=== PATIENT | female | born 1965 | race Caucasian/White ===

== ENCOUNTER 2016-10-09 05:03 | Day surgery (SDC) | payer BC ==
[2016-10-08 14:37] VITALS: BMI 21.6
[2016-10-09] MEDS ORDERED: BUPIVACAINE HCL/PF 0.5% (5MG/ML) 10 ML VIAL ONE (07:18)
[2016-10-09] MEDS ORDERED: ePHEDrine SULFATE 50 MG/1 ML AMPULE ONE (07:24)
[2016-10-09] MEDS ORDERED: PHENYLEPHRINE HCL 10 MG/1 ML SINGLE DOSE VIAL ONE (07:24)
[2016-10-09] MEDS ORDERED: PROPOFOL 20 ML ONE ×3 (07:25)
[2016-10-09] MEDS ORDERED: SUCCINYLCHOLINE CHLORIDE 200 MG/10 ML VIAL ONE (07:25)
[2016-10-09] MEDS ORDERED: MIDAZOLAM HCL 2 MG/2 ML SINGLE DOSE VIAL ONE ×2 (07:25)
[2016-10-09] MEDS ORDERED: ACETAMINOPHEN INJECTION 100 ML IVPB ONE (07:30)
[2016-10-09] MEDS ORDERED: DESFLURANE GAS 240 ML BOTTLE IH ONE (08:14)
--- NOTE | 2016-10-09 08:29 | HP ---
Satellite [facility] - Chief Complaint Chief Complaint: right knee pain - Past Medical History Allergies/Adverse Reactions: Allergies Allergy/AdvReac Type Severity Reaction Status Date / Time No Known Allergies Allergy Verified 02/01/16 16:51 ...LMP Comment: 2014 - Current Medications Current Medications: Home Medications Medication Instructions Recorded Levothyroxine [Synthroid -] 200 mcg PO DAILY 02/16/14 Alprazolam [Xanax Xr] 1 mg PO TID PRN 02/01/16 Oxycodone HCl 30 mg PO TID 02/01/16 Adderall Xr 20 mg Capsule 20 mg PO PRN PRN 10/08/16 Satellite Physical Exam - Physical Examination Vital Signs: Vital Signs Period Temp Pulse Resp BP Sys/[place] Pulse Ox Last 24 Hr 98 F 85 18 94/59 98 General Appearance: Well Nourished, Well Developed, Alert & Oriented x3 ENT: Clear Lung: Normal air movement Heart: Regular rate & rhythm Extremities: Other (right knee- + swelling, + ttp, decr rom, + mcmurrays, + apleys, nvi MRi + mmt, lmt) Neurological: Intact, Alert, Oriented Satellite Impression/Plan - Impression/Plan Impression: right knee internal derangement Operative Procedure: right knee arthroscopy Date to be Performed: 10/09/16
[2016-10-09] MEDS ORDERED: ONDANSETRON 4 MG/2 ML VIAL ONE (08:30)
--- NOTE | 2016-10-09 08:55 | OP ---
Operative Note - Note: Operative Date: 10/09/16 ([facility]) Pre-Operative Diagnosis: right knee internal derangement Operation: right knee arthroscopy with PLM Post-Operative Diagnosis: Same as Pre-op Surgeon: Braydon Villalta Corporate Travel Coordinator: Jesus Lord Anesthesiologist/WARDROBE CONSULTANT: Servando Mai Anesthesia: General, Local Specimens Removed: shavings Estimated Blood Loss (mls): 5 Operative Report Dictated: Yes
[2016-10-09] MEDS ORDERED: ONDANSETRON 4 MG/2 ML VIAL IVPUSH PRN (08:58)
[2016-10-09] MEDS ORDERED: LACTATED RINGERS SOLUTION 1,000 ML IV SCH (09:00)
[2016-10-09] MEDS ORDERED: oxyCODONE HCL 5 MG TABLET PO PRN (10:45)
[2016-10-09] MEDS ORDERED: oxyCODONE HCL 5 MG TABLET ONE (10:50)
--- NOTE | 2016-10-09 10:58 | OP ---
DATE OF OPERATION: 10/09/2016 PREOPERATIVE DIAGNOSIS: Right lateral meniscus tear. POSTOPERATIVE DIAGNOSIS: Right lateral meniscus tear. PROCEDURE: Arthroscopy right knee with partial lateral meniscectomy. SURGICAL ATTENDING: Braydon Villalta MD CHIEF DRAFTER: Jesus Lord MD ANESTHESIA: General with LMA. CLOSURES: 4-0 nylon. COMPLICATIONS: None. CONDITION: To recovery room in stable condition. DESCRIPTION OF PROCEDURE: The patient was taken to the operating room on October 09, 2016. General anesthesia with LMA was administered by the anesthesiologist. The right lower extremity was prepped and draped in the usual sterile fashion. Superolateral and mediolateral infrapatellar portal sites were infiltrated with 1% Xylocaine with epinephrine. Superolateral port was made with 15 blade and blunt trocar. The knee was aspirated and inflated with a cocktail of 10 mL of 1% Xylocaine, 10 mL of 0.5% Marcaine, and 20 mL of arthroscopic saline. The medial and lateral infrapatellar ports was then made with a 15 blade and blunt trocar. The scope was placed in the lateral infrapatellar port up to suprapatellar pouch. The pouch was visualized to be clean. The medial and lateral gutters were visualized to be clean. The undersurface of the patella and trochlea were visualized to be intact. With valgus stress on the knee, the medial compartment was entered. The medial meniscus was visualized and probed and found to intact. The medial femoral condyle was run and found to be intact as was the medial tibial plateau. At 90 degrees, the ACL was visualized and probed and found to be intact. In figure-4 position, lateral compartment was entered. Lateral meniscus was found to have a complex tear of its midportion. This was debrided back to normal, stable, meniscal tissue using a meniscal biter and arthroscopic shaver. The lateral and femoral condyle was inspected thoroughly as was the lateral tibial plateau and found to be intact. The knee was irrigated with copious amounts of irrigation. The port was closed using 4-0 nylon. Prior to closure, 20 mL of 0.5% Marcaine was infused into the knee for postoperative analgesia. A sterile pressure dressing was placed over the knee. The patient was awakened from anesthesia and transferred to recovery in stable condition with no complications. Estimated blood loss negligible. Crystal [id number]
[2016-10-09 11:55] VITALS: BP 100/58; PULSE 72; TEMP 98.1
--- NOTE | 2016-10-10 16:30 | PATH ---
Surgical Pathology Report Patient Name: CLEM HILTON [facility]. Rec. #: [id number] /Age/Gender: 1965 (Age: 51) / F Account: [id number] Location: [facility] SURGICAL Taken: 10/09/2016 Received: 10/09/2016 Reported: 10/10/2016 Physicians: Crystal Hood M.D. Specimen(s) Received RIGHT KNEE SHAVINGS Clinical History Right knee tear Final Diagnosis SOFT TISSUE, RIGHT KNEE, ARTHROSCOPIC SHAVINGS: SYNOVIUM AND FIBROCARTILAGE WITH MYXOHYALINE DEGENERATION. Electronically Signed Jamir Moon M.D. Gross Description Received in formalin, labeled "right knee shavings" is a 2.5 x 2.5 x 0.3 cm aggregate of marie-yellow soft tissue fragments. A food products sales representative portion is submitted in one cassette. 10/09/201610/09/2016
== END 2016-10-09 12:20 | disposition home or self-care (01) ==
LOC: JASU-SURG 05:03
PROVIDERS: ATTEND Orthopaedic Surgery
PROC: 0SBC4ZZ Excision of Right Knee Joint, Percutaneous Endoscopic Approach (ICD-10-PCS; principal; 2016-10-09 08:00)
DX: S83.281A Other tear of lateral meniscus, current injury, right knee, initial encounter (principal); X58.XXXA Exposure to other specified factors, initial encounter; Y93.9 Activity, unspecified; Y92.9 Unspecified place or not applicable; Y99.9 Unspecified external cause status
CPT/HCPCS: 88304-TC; 94760; 97116-GP

== ENCOUNTER 2016-10-28 05:51 | Emergency (ER) | payer BC ==
--- NOTE | 2016-10-28 05:53 | PDOC ---
History of Present Illness - General Chief Complaint: Pain, Acute Stated Complaint: PAIN IN RIGHT HAND X 1 YEAR , INCREASED OVER LAST Time Seen by Provider: 10/28/16 05:52 - History of Present Illness Initial Comments: 10/28/16 06:19 This 51-year-old woman with multiple orthopedic issues, including right carpal tunnel syndrome pain presents with progressive pain in the right wrist/hand area for the last few days. Patient states that she has been seen for this pain by Dr. Villalta several times in the past, during which she received a steroid injection into the area. This was temporarily effective but she has not seen Dr. Villalta for a while. She describes burning, "electrical" type of pain extending through the forearm into the base of her hand and fingers especially with certain positions of her hand. She has also had progressive weakness in the hand. She has had splints for use, especially at night for the last year. There has been no recent trauma or overuse of the right hand/wrist area. There is no acute edema/erythema of any of the joints in her hand or wrist. Past History - Past Medical History Allergies/Adverse Reactions: Allergies Allergy/AdvReac Type Severity Reaction Status Date / Time No Known Allergies Allergy Verified 10/28/16 05:52 Home Medications: Ambulatory Orders Levothyroxine [Synthroid -] 200 mcg PO DAILY 02/16/14 Alprazolam [Xanax Xr] 1 mg PO TID PRN 02/01/16 Oxycodone HCl 30 mg PO TID 02/01/16 Adderall Xr 20 mg Capsule 20 mg PO PRN PRN 10/08/16 Prednisone [Deltasone -] 20 mg PO DAILY #10 tablet 10/28/16 Anemia: No Asthma: Yes (SEASONAL ASTHMA) Cancer: No Cardiac Disorders: No CVA: No COPD: No CHF: No Dementia: No Diabetes: No GI Disorders: No Disorders: No HTN: No Hypercholesterolemia: No Liver Disease: No Psychiatric Problems: Yes (ANXIETY.) Seizures: No Thyroid Disease: Yes (HYPO) - Surgical History Abdominal Surgery: Yes (CYST AND OVARY, ABLATION) Appendectomy: No Cardiac Surgery: No Lung Surgery: No Neurologic Surgery: No Orthopedic Surgery: Yes (MUSCLE, CARTLIDGE RIGHT RARM') - Psycho/Social/Smoking Cessation Hx Anxiety: Yes Suicidal Ideation: No Smoking History: Current every day smoker Have you smoked in the past 12 months: Yes Number of Cigarettes Smoked Daily: 20 'Breaking Loose' booklet given: 10/08/16 Hx Alcohol Use: No Drug/Substance Use Hx: No Substance Use Type: None Hx Substance Use Treatment: No Review of Systems - Review of Systems Able to Perform ROS?: Yes Comments:: 12 point review of systems is negative except for what is noted in the history of present illness *Physical Exam - Physical Exam Comments: GENERAL: Adult female, alert and oriented 3, in mild distress secondary to right hand pain EXTREMITIES: Right upper extremity flattening of the thenar eminence with pain on palpation over the carpal tunnel/base of the thenar eminence No acute inflammation/edema or erythema of any of the joints of her hand ; enlargement of IP joints NEUROLOGICAL: Cranial nerves II through XII grossly intact. Normal speech. No focal neurological deficits. MUSCULOSKELETAL: Back non-tender to palpation, no CVA tenderness SKIN: Warm, Dry, normal turgor, no rashes or lesions noted. Progress Note - Progress Note Progress Note: This 51-year-old woman with a history of carpal tunnel syndrome of the right upper extremity, presents with several day flare of her neurogenic pain. The patient states that in the past she has had no significant relief of her pain with Neurontin or other medications design foreign neurogenic pain. She has used splints in the past and has them at home. She has had intra-articular steroid injections by Dr. Villalta. However, she has not had a steroid injection in a while. She cannot recall actually taking oral prednisone course for her flare episodes. Patient states that she does not have significant gastritis/or history of peptic ulcer disease. She occasionally has GERD and needs to takes Zantac or some similar H2-garland when she takes prednisone. Patient will be given prednisone 20 mg now and ten-day course of 20 mg daily will be given to her. Patient has been advised to contact Dr. Villalta's office to arrange follow-up within the next week. Meanwhile, she should return to the emergency room if she has any severe, persistent pain in the area of her right wrist/hand *DC/Admit/Observation/Transfer Diagnosis at time of Disposition: Carpal tunnel syndrome Qualifiers: Laterality: right Qualified Code(s): G56.01 - Carpal tunnel syndrome, right upper limb - Discharge Dispostion Disposition: HOME Condition at time of disposition: Stable - Prescriptions Prescriptions: Prednisone [Deltasone -] 20 mg PO DAILY #10 tablet - Referrals Referrals: Jesus Lord MD [Primary Care Provider] - Braydon Villalta MD [Staff Physician] - - Patient Instructions Printed Discharge Instructions: Carpal Tunnel Syndrome Additional Instructions: Use carpal tunnel splint on right wrist, especially at night Prednisone 20 mg daily for 10 days Take prednisone with meal Call Dr. Villalta's office today to make an appointment within the next week Return to ER if you have severe, persistent pain
[2016-10-28 06:02] VITALS: BP 118/70; PULSE 92; TEMP 98.2; BMI 21.6
[2016-10-28] MEDS ORDERED: predniSONE 20 MG TABLET (UD) ONE (06:11)
[2016-10-28] MEDS ORDERED: predniSONE 20 MG TABLET (UD) PO ONE (06:11)
== END 2016-10-28 06:33 | disposition home or self-care (01) ==
LOC: FER 05:51
DX: G56.01 Carpal tunnel syndrome, right upper limb (principal); J45.998 Other asthma; F41.9 Anxiety disorder, unspecified; E03.9 Hypothyroidism, unspecified; F17.210 Nicotine dependence, cigarettes, uncomplicated
CPT/HCPCS: 99281-25

== ENCOUNTER 2017-09-16 12:52 | Day surgery (SDC) | payer BC ==
[2017-09-15 10:54] VITALS: BMI 20.5
--- NOTE | 2017-09-16 10:11 | HP ---
Satellite [facility] - Chief Complaint Chief Complaint: left knee pain - Past Medical History Allergies/Adverse Reactions: Allergies Allergy/AdvReac Type Severity Reaction Status Date / Time No Known Allergies Allergy Verified 09/15/17 10:54 ...LMP: 11/23/11 - Current Medications Current Medications: Home Medications Medication Instructions Recorded Levothyroxine [Synthroid -] 200 mcg PO DAILY 02/16/14 Alprazolam [Xanax Xr] 1 mg PO TID PRN 02/01/16 Oxycodone HCl 30 mg PO BID 02/01/16 Adderall Xr 20 mg Capsule 20 mg PO PRN PRN 10/08/16 Hydrocodone/Acetaminophen [[place] 1 each PO Q6H PRN #40 tablet MDD 4 09/16/17 5-325 Tablet] Satellite Physical Exam - Physical Examination General Appearance: Well Nourished, Well Developed, Alert & Oriented x3 ENT: Clear Lung: Normal air movement Heart: Regular rate & rhythm Extremities: Other (left knee- + swelling, + ttp medially, dec rom, nvi MRI + mmt) Neurological: Intact, Alert, Oriented Satellite Impression/Plan - Impression/Plan Impression: left knee internal derangement Operative Procedure: left knee arthroscopy Date to be Performed: 09/16/17
[2017-09-16] MEDS ORDERED: BUPIVACAINE HCL/PF 0.5% (5MG/ML) 10 ML VIAL ONE (14:19)
[2017-09-16] MEDS ORDERED: MIDAZOLAM HCL 2 MG/2 ML SINGLE DOSE VIAL ONE ×2 (14:33→15:02)
[2017-09-16] MEDS ORDERED: DEXAMETHASONE SOD PHOSPHATE 4 MG/1 ML VIAL ONE (15:08)
[2017-09-16] MEDS ORDERED: PROPOFOL 20 ML ONE (15:09)
[2017-09-16] MEDS ORDERED: LIDOCAINE HCL/PF 2% SDV 5ML VIAL ONE (15:09)
[2017-09-16] MEDS ORDERED: ceFAZolin SODIUM 1 GM VIAL ONE (15:09)
[2017-09-16] MEDS ORDERED: ceFAZolin SODIUM 1 GM VIAL IVPB ONE (15:16)
[2017-09-16] MEDS ORDERED: BUPIVACAINE HCL/PF (5 MG/ML) 30 ML VIAL IJ ONE (15:32)
[2017-09-16] MEDS ORDERED: KETOROLAC TROMETHAMINE 30 MG/1 ML VIAL ONE (15:47)
--- NOTE | 2017-09-16 15:49 | OP ---
Operative Note - Note: Operative Date: 09/16/17 ([facility]) Pre-Operative Diagnosis: left knee internal derangement Operation: left knee arthroscopy with PMM, PLM Post-Operative Diagnosis: Same as Pre-op Surgeon: Braydon Villalta Anesthesiologist/COTTON AGENT: Phong Prado Anesthesia: General, Local Specimens Removed: shavings Estimated Blood Loss (mls): 5 Operative Report Dictated: Yes
[2017-09-16] MEDS ORDERED: oxyCODONE HCL 5 MG TABLET PO PRN (16:02)
[2017-09-16] MEDS ORDERED: ONDANSETRON 4 MG/2 ML VIAL IVPUSH PRN (16:02)
[2017-09-16] MEDS ORDERED: MEPERIDINE HCL CARPU-JECT 25 MG/1 ML DISP.SYRIN ONE (16:10)
[2017-09-16] MEDS ORDERED: LACTATED RINGERS SOLUTION 1,000 ML IV SCH (16:15)
[2017-09-16] MEDS ORDERED: MEPERIDINE HCL CARPU-JECT 25 MG/1 ML DISP.SYRIN IVPUSH ONE (16:16)
--- NOTE | 2017-09-16 16:35 | OP ---
DATE OF OPERATION: 09/16/2017 PREOPERATIVE DIAGNOSIS: Left knee pain. POSTOPERATIVE DIAGNOSIS: Left knee medial and lateral meniscus tear. PROCEDURE: Left knee arthroscopy, partial medial and lateral meniscectomy. SURGEON: Nguyễn Thomas MD ASSISTANTS: None. ANESTHESIOLOGIST: Phong Prado MD ANESTHESIA: LMA anesthesia with intraarticular injection of 20 mL of 0.50% Marcaine. DRAINS: None. COMPLICATIONS: None. SPECIMENS: Arthroscopic shavings. BLOOD LOSS: None. BLOOD GIVEN: None. FLUID REPLACEMENT: 500 mL This patient is a 52-year-old female with the preoperative diagnosis of left knee pain. After understanding the potential risks, complications, alternatives, and benefits of surgery versus nonsurgical treatment, the patient elected to undergo this procedure. Patient was brought to the operating room, peripheral IV placed, IV sedation given. One gram of IV Ancef was given. LMA anesthesia was induced. Ample Webril was placed around the left thigh. A tourniquet was applied. A Styrofoam ring was applied. Left lower extremity was placed in C-clamp leg brar with ample padding throughout, prepped and draped in sterile fashion, elevated, exsanguinated with an Esmarch bandage, and the tourniquet inflated to 250 mmHg. Superomedial outflow portal was established with a number 15 scalpel blade, and a lateral portal was established. Diagnostic arthroscopy was performed under direct visualization using a spinal needle. A medial portal was established. The medial compartment showed that there was a tear of the posterior horn of the medial meniscus. Photographs were taken. The tear was debrided with a curved shaver. I gently debrided the torn portions of the medial meniscus until a stable edge was released. Photographs were taken before and after. The medial femoral condyle and medial tibial plateau looked good. There was no osteoarthritis. The intercondylar notch looked good. The ACL looked good. In the lateral compartment, the patient was seen to have a small tear of the body of the lateral meniscus. This was debrided with a curved shaver. Photographs were taken before and after. The lateral femoral condyle and lateral tibial plateau also looked good. In the patellofemoral joint, the cartilage looked good. I put it through a full range of motion under direct visualization. The tracking was good. There was, however, synovitis and excessive fat pad. This was debrided with a curved shaver. Once this was done, final photographs were taken. I looked around. There were no other abnormalities. Overall, the knee looked quite good. All excess saline and debris were removed. The arthroscopy portals were closed with 4-0 nylon sutures. The area was then washed and dried. Next, 20 mL of 0.50% Marcaine was introduced into the joint. It was then covered with Xeroform, 4 x 4's, Webril, and a 6-inch Parvez bandage. Tourniquet was taken down after total tourniquet time of 17 minutes. There were no complications during the case. The patient tolerated the procedure quite well and was brought to the ambulatory recovery room in stable condition. NGUYỄN THOMSA M.D. [id number]
[2017-09-16 18:06] VITALS: BP 119/66; PULSE 70
[2017-09-16 18:55] VITALS: TEMP 98.2
--- NOTE | 2017-09-18 17:26 | PATH ---
Surgical Pathology Report Patient Name: CLEM HILTON [facility]. Rec. #: [id number] /Age/Gender: 1965 (Age: 52) / F Account: [id number] Location: [facility] SURGICAL Taken: 09/16/2017 Received: 09/17/2017 Reported: 09/18/2017 Physicians: Braydon Villalta M.D. Specimen(s) Received LEFT KNEE SHAVINGS Clinical History Left knee pain Final Diagnosis KNEE SHAVINGS, LEFT, ARTHROSCOPY: FRAGMENTS OF CARTILAGE, DENSE FIBROCONNECTIVE TISSUE, ADIPOSE TISSUE, AND REACTIVE SYNOVIUM. Electronically Signed Amy Davis M.D. Gross Description Received in formalin, labeled "left knee shavings," is a 4.3 x 3.2 x 0.4 cm. aggregate of marie-yellow soft tissue fragments. A dental sales representative portion is submitted in one cassette. /09/17/2017 saudi/09/17/2017
== END 2017-09-16 19:05 | disposition home or self-care (01) ==
LOC: JASU-SURG 12:52
PROVIDERS: ATTEND Orthopaedic Surgery
PROC: 0SBD4ZZ Excision of Left Knee Joint, Percutaneous Endoscopic Approach (ICD-10-PCS; 2017-09-16)
PROC: 0SBD4ZZ Excision of Left Knee Joint, Percutaneous Endoscopic Approach (ICD-10-PCS; principal; 2017-09-16 14:30)
DX: S83.282A Other tear of lateral meniscus, current injury, left knee, initial encounter (principal); S83.242A Other tear of medial meniscus, current injury, left knee, initial encounter; X58.XXXA Exposure to other specified factors, initial encounter; Y93.9 Activity, unspecified; Y92.89 Other specified places as the place of occurrence of the external cause; Y99.9 Unspecified external cause status
CPT/HCPCS: 88304-TC; 94760; 97116-GP

== ENCOUNTER 2018-01-26 19:39 | Emergency (ER) | payer BC ==
[2018-01-26 19:53] VITALS: BP 119/78; PULSE 86; TEMP 98.3; BMI 22.4
--- NOTE | 2018-01-26 19:56 | PDOC ---
History of Present Illness - General History Source: Patient Exam Limitations: No Limitations - History of Present Illness Initial Comments: 01/26/18 20:51 The patient is a 52 year old female, with a significant past medical history of hypothyroidism, anxiety, and carpal tunnel, who presents to the emergency department with, right hand and 4th digit pain. As per patient, her pain began to worsen 2 days ago while peeling potatoes and her 4th digit locked. She notes that this pain has been ongoing for over a month. She sees Dr. Villalta for her carpal tunnel where she gets cortisone shots, her last visit was months ago. She denies any change in sensation to the hand. She denies recent fevers, chills , headache or dizziness. She denies recent nausea, vomit, diarrhea or constipation. She denies recent dysuria, frequency, urgency or hematuria. She denies recent chest pain or shortness of breath. Allergies: NKDA Past surgical history: Right elbow and shoulder surgery Social history: Smoker. Primary Care Physician: Dr. Pina <Aleah Mendoza - Last Filed: 01/26/18 20:51> <Lauren Granda - Last Filed: 01/27/18 05:39> - General Chief Complaint: Pain Stated Complaint: RIGHT HAND/FINGER PAIN Time Seen by Provider: 01/26/18 19:41 Past History <Aleah Mendoza - Last Filed: 01/26/18 20:51> - Past Medical History Anemia: No Asthma: Yes (SEASONAL ASTHMA) Cancer: No Cardiac Disorders: No CVA: No COPD: No CHF: No Dementia: No Diabetes: No GI Disorders: No Disorders: No HTN: No Hypercholesterolemia: No Liver Disease: No Psychiatric Problems: Yes (ANXIETY) Seizures: No Thyroid Disease: Yes (HYPO) - Surgical History Abdominal Surgery: Yes (CYST AND OVARY, ABLATION) Appendectomy: No Cardiac Surgery: No Lung Surgery: No Neurologic Surgery: No Orthopedic Surgery: Yes (MUSCLE, CARTLIDGE RIGHT RARM') - Suicide/Smoking/Psychosocial Hx Smoking History: Current every day smoker Have you smoked in the past 12 months: Yes Number of Cigarettes Smoked Daily: 20 Information on smoking cessation initiated: Yes 'Breaking Loose' booklet given: 09/16/17 Hx Alcohol Use: No Drug/Substance Use Hx: No Substance Use Type: None Hx Substance Use Treatment: No <Lauren Granda June - Last Filed: 01/27/18 05:39> - Past Medical History Allergies/Adverse Reactions: Allergies Allergy/AdvReac Type Severity Reaction Status Date / Time No Known Allergies Allergy Verified 01/26/18 19:40 Home Medications: Ambulatory Orders Levothyroxine [Synthroid -] 200 mcg PO DAILY 02/16/14 Alprazolam [Xanax Xr] 1 mg PO TID PRN 02/01/16 Oxycodone HCl 30 mg PO BID 02/01/16 Dextroamphetamine/Amphetamine [Adderall Xr 30 mg Capsule] 30 mg PO DAILY PRN Prednisone [Deltasone] 20 mg PO DAILY #4 tablet 01/26/18 Review of Systems - Review of Systems Able to Perform ROS?: Yes Comments:: 01/26/18 20:51 CONSTITUTIONAL: Absent: fever, no chills, no fatigue EYES: Absent: visual changes ENT: Absent: ear pain, no sore throat CARDIOVASCULAR: Absent: chest pain, no palpitations RESPIRATORY: Absent: cough, no SOB GI: Absent: abdominal pain, no nausea, no vomiting, no constipation, no diarrhea GENITOURINARY: Absent: dysuria, no frequency, no hematuria MUSKULOSKELETAL: Present: Right 4th digit and hand pain. Absent: back pain SKIN: Absent: rash NEURO: Absent: headache All Other Systems: Reviewed and Negative <Aleah Mendoza - Last Filed: 01/26/18 20:51> *Physical Exam - Vital Signs Last Vital Signs Temp Pulse Resp BP Pulse Ox 98.3 F 86 16 119/78 97 01/26/18 19:40 01/26/18 19:40 01/26/18 19:40 01/26/18 19:40 01/26/18 19:40 - Physical Exam Comments: 01/26/18 20:52 GENERAL: The patient is awake, alert, and fully oriented, in no acute distress. HEAD:[Normal with no signs of trauma. EYES: Pupils equal, round and reactive to light, extraocular movements intact, sclera anicteric, conjunctiva clear. +EXTREMITIES: Right hand: Generalized moderate edema to the 4th digit with tenderness on passive and active motion. Mild tenderness to the palmar aspect of the hand throughout. Radial pulses palpable at wrist. Good capillary refills. NEUROLOGICAL: Normal speech, normal gait. PSYCH: Normal mood, normal affect. SKIN: Warm, Dry, normal turgor, no rashes or lesions noted. <Aleah Mendoza - Last Filed: 01/26/18 20:51> - Vital Signs Last Vital Signs Temp Pulse Resp BP Pulse Ox 98.3 F 86 16 119/78 97 01/26/18 19:40 01/26/18 19:40 01/26/18 19:40 01/26/18 19:40 01/26/18 19:40 <Lauern Granda - Last Filed: 01/27/18 05:39> Medical Decision Making - Medical Decision Making Documentation has been prepared under my direction and personally reviewed by me in its entirety. I attest that this documented accurately reflects all work, treatment, procedures and medical decision making performed by me. As noted above, this 52-year-old woman with history of carpal tunnel syndrome on the right side, with multiple intra-articular injections of steroids by Dr. Villalta for acute episodes of this anomaly, presents with worsening discomfort and swelling of the right ring finger. Although somewhat reminiscent of her acute pain secondary to carpal tunnel syndrome, she also describes freezing of the finger when in full flexion which suggests trigger finger. Exam as noted. Because of patient was unclear whether she had any previous severe trauma to the area, right hand x-ray performed: No evidence of acute fracture/dislocation. Because oral prednisone course was helpful for her carpal tunnel syndrome flareups, patient was eager to begin a short course of this prior to seeing her orthopedic hand surgeon, Dr. Villalta. Patient started on 20 mg prednisone today with prescription for 4 more days of this dose sent to the pharmacy. She should return to the emergency room if she has severe, persistent pain/swelling in finger. <Lauren Granda - Last Filed: 01/27/18 05:39> *DC/Admit/Observation/Transfer - Attestations Scribe Attestion: 01/26/18 20:52 Documentation prepared by Aleah Mendoza, acting as biomedical engineering technologist for Lauren Granda MD. <Aleah Mendoza - Last Filed: 01/26/18 20:51> <Lauren Granda - Last Filed: 01/27/18 05:39> Diagnosis at time of Disposition: Finger pain, right - Discharge Dispostion Disposition: HOME Condition at time of disposition: Stable - Prescriptions Prescriptions: Prednisone [Deltasone] 20 mg PO DAILY #4 tablet - Referrals Referrals: Dell Pina MD [Primary Care Provider] - Braydon Villalta MD [Staff Physician] - Call tomorrow - Patient Instructions Printed Discharge Instructions: DI for Trigger Finger Additional Instructions: Call Dr. Villalta office in a.m. to arrange follow-up Prednisone 20 mg daily for the next 4 days; take with food Return to ER if you have severe, persistent pain - Post Discharge Activity
[2018-01-26] MEDS ORDERED: predniSONE 20 MG TABLET (UD) PO ONE (21:27)
[2018-01-26] MEDS ORDERED: predniSONE 20 MG TABLET (UD) ONE (21:28)
== END 2018-01-26 21:36 | disposition home or self-care (01) ==
LOC: FER 19:39
DX: M79.644 Pain in right finger(s) (principal); E03.9 Hypothyroidism, unspecified; F41.9 Anxiety disorder, unspecified; F17.210 Nicotine dependence, cigarettes, uncomplicated
CPT/HCPCS: 73130-TC-RT-FY; 99282-25

== ENCOUNTER 2018-10-09 08:02 | Day surgery (SDC) | payer BC ==
[2018-10-08 10:10] VITALS: BMI 22.4
[2018-10-09] MEDS ORDERED: DEXAMETHASONE SOD PHOSPHATE 4 MG/1 ML VIAL ONE ×2 (08:12→10:27)
[2018-10-09] MEDS ORDERED: LIDOCAINE HCL 1%, 10 MG/ML (20ML VIAL) ONE (08:12)
[2018-10-09] MEDS ORDERED: BUPIVACAINE HCL/PF 0.5% (5MG/ML) 10 ML VIAL ONE (08:12)
[2018-10-09] MEDS ORDERED: ceFAZolin SODIUM 1 GM VIAL ONE ×2 (09:38→10:26)
[2018-10-09] MEDS ORDERED: PROPOFOL 20 ML ONE (09:39)
[2018-10-09] MEDS ORDERED: MIDAZOLAM HCL 2 MG/2 ML SINGLE DOSE VIAL ONE ×2 (09:39→10:06)
[2018-10-09] MEDS ORDERED: ceFAZolin SODIUM 1 GM VIAL IVPB ONE ×2 (09:44→10:28)
[2018-10-09] MEDS ORDERED: LIDOCAINE HCL 1%, 10 MG/ML (20ML VIAL) NR ONE (09:46)
[2018-10-09] MEDS ORDERED: BUPIVACAINE HCL/PF 0.5% (5MG/ML) 10 ML VIAL NR ONE (09:46)
[2018-10-09] MEDS ORDERED: DEXAMETHASONE SOD PHOSPHATE 4 MG/1 ML VIAL NR ONE (10:51)
[2018-10-09] MEDS ORDERED: BUPIVACAINE HCL/PF 0.5% (5MG/ML) 10 ML VIAL IJ ONE (10:51)
--- NOTE | 2018-10-09 11:13 | OP ---
Operative Note - Note: Operative Date: 10/09/18 Pre-Operative Diagnosis: Hallux Valgus right Operation: Long arm Steven Bunionectomy with 2 osteomed partially threaded screws. Findings: Hypertrophic bone Implants: 2.4x14 osteomed lag (partially threaded)screw, 2.4x16 osteomed lag( partially threaded) screw Post-Operative Diagnosis: Same as Pre-op Surgeon: Francisco Espinosa Global Supply Chain Director: Kelsi Michelle Anesthesia: Local, MAC Specimens Removed: bone soft tissue Estimated Blood Loss (mls): 5 Operative Report Dictated: No
[2018-10-09 18:18] VITALS: BP 130/70; PULSE 68; TEMP 97.8
--- NOTE | 2018-10-14 17:11 | PATH ---
Surgical Pathology Report Patient Name: CLEM HILTON [facility]. Rec. #: [id number] /Age/Gender: 1965 (Age: 53) / F Account: [id number] Location: [facility] SURGICAL Taken: 10/09/2018 Received: 10/12/2018 Reported: 10/14/2018 Physicians: Kelsi Michelle DPM Francisco YING Espinosa Specimen(s) Received BONE RIGHT FOOT Clinical History Hallux valgus right foot Final Diagnosis RIGHT FOOT BONE, EXCISION: FRAGMENTS OF BONE WITH DEGENERATIVE CHANGE. Electronically Signed Elio Mars M.D. Gross Description Received in formalin labeled "bone right foot," is a 3.0 x 2.5 x 0.4 cm aggregate of abundant marie-yellow portions of bone and soft tissue. Classroom Technology Technician sections are submitted in one cassette, following decalcification. /10/12/2018 saudi10/12/2018
--- NOTE | 2018-10-15 13:37 | OP ---
DATE OF OPERATION: DATE OF DICTATION: 10/15/2018 Under mild sedation, the patient was brought in to the operating room and assisted onto the operating room table in a supine position. A pneumatic ankle tourniquet was then placed upon the patient's right ankle. Following IV sedation, local anesthetic block was administered to the right foot, approximately a 1:1 mixture of lidocaine and Marcaine. The foot was then scrubbed, prepped, and draped in the usual aseptic manner. An Esmarch bandage was then utilized to exsanguinate the patient's right foot and the pneumatic ankle tourniquet was inflated to 250 mmHg. Attention was then directed to the dorsomedial aspect of the 1st metatarsal head, right foot, where a linear longitudinal incision was carried out just medial and parallel to the tendon of the extensor hallucis longus and involving the deformity. The incision was then deepened through the subcutaneous tissues using sharp and blunt dissection. Care was taken to identify and retract all vital neural and vascular structures. All bleeders were ligated and cauterized as necessary. At this time, a capsulotomy was performed of the 1st MPJ. The periosteal and capsular structures were then carefully reflected, gaining entrance. Then the medial eminence was then resected with an oscillating saw and then passed from the operative site. Attention was then directed to the medial aspect of the 1st metatarsal head. The oscillating sagittal saw was then performed to remove the medial eminence. The oscillating saw was used to successfully perform a complete [id number] V-type Steven osteotomy and the angle of the V approximately 60 degrees. At this time, a K wire was driven from proximal dorsal to plantar medial distal, crossing the osteotomy site and will serve as a guide for the insertion of the screw. Following the rules and principles of AO fixation, 2 Osteomed screws were inserted in the metatarsal head. Excellent compression was noted as evidenced by the expelling of liquid marrow at the osteotomy site. The distal end of the screw was verified for certain as to not crowd the cartilage and the K wire was then removed. The remaining medial shaft was then transected and passed from the operative field. A power rasp smoothed any rough edges. Copious lavage was completed with irrigation with normal saline across all areas of operative site. A rolled up 4 x 4 was then placed between the 1st and 2nd toes to assist in the correction and then the capsular tissues were then reapproximated and coapted with absorbable 2-0 Vicryl sutures and 3-0 Vicryl sutures. The skin was closed with nonabsorbable 4-0 Vicryl sutures and 5-0 Vicryl sutures. Deflation of the tourniquet, prompt hyperemia noted across all digits of the right foot. Local injectate consisted of 8 mL of Marcaine plain and 2 mL of cortisone. The surgical wound and foot were dressed as follows: 4 x 4 gauze, Kerlix, and an Parvez bandage. The patient tolerated the procedure and anesthesia well, left the operating room with the anesthesiologist in stable condition. Following a period of postoperative monitoring, the patient will be discharged home for post-anesthesia recovery with instructions to elevate foot above the heart, pain medications p.r.n., keep dressing clean and dry, with followup appointment with Dr. Espinosa or Dr. Michelle. YING Barboza/[id number]
== END 2018-10-09 14:15 | disposition home or self-care (01) ==
LOC: JASU-SURG 08:02
PROVIDERS: ATTEND Podiatrist
PROC: 0QBN0ZZ Excision of Right Metatarsal, Open Approach (ICD-10-PCS; 2018-10-09)
PROC: 0QSN04Z Reposition Right Metatarsal with Internal Fixation Device, Open Approach (ICD-10-PCS; principal; 2018-10-09 09:00)
DX: M20.11 Hallux valgus (acquired), right foot (principal); M21.611 Bunion of right foot
CPT/HCPCS: 73630-TC-RT-FY; 88304-TC; 88311-TC

== ENCOUNTER 2019-05-16 08:02 | Emergency (ER) | payer SELFPAY ==
[2019-05-16] MEDS ORDERED: ALBUTEROL SO4 2.5/IPRATROPIUM 0.5 INH SOL 3 ML VIAL.NEB. NEB STA (08:07)
[2019-05-16] MEDS ORDERED: methylPREDNISolone NA SUCC 125 MG/2 ML VIAL IVPB ONE (08:10)
[2019-05-16] MEDS ORDERED: ALBUTEROL SO4 2.5/IPRATROPIUM 0.5 INH SOL 3 ML VIAL.NEB. NEB ONE (08:27)
--- NOTE | 2019-05-16 08:27 | PDOC ---
History of Present Illness - General Chief Complaint: Shortness of Breath Stated Complaint: SOB Time Seen by Provider: 05/16/19 08:07 History Source: Patient Exam Limitations: No Limitations - History of Present Illness Initial Comments: 05/16/19 08:21 CHIEF COMPLAINT: Shortness of breath and wheezing since last night HISTORY OF PRESENT ILLNESS: 54-year-old female with a long history of smoking, and hypothyroid. Patient uses albuterol inhaler and nebulizer as needed for epi sodic shortness of breath. She usually gets short of breath every few days. 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 She had some shortness of breath Friday night, but the symptoms were relatively mild. Last night, she had run out of medication, and she got very short of breath with wheezing that led to increasing anxiety. Patient denies sore throat, nasal congestion, cough, or fever. She continues to smoke 20 cigarettes/day. She started smoking at age 13 and has been smoking for over 40 years. She does not carry a diagnosis of COPD, however, she describes symptoms that are very suggestive of a diagnosis of COPD on an ongoing basis. Primary care physician: Dr. Pina Patient is also under regular psychiatric care for anxiety disorder. She takes Xanax as needed. REVIEW OF SYSTEMS: GENERAL/CONSTITUTIONAL: No fever or chills. No weakness. No weight change. HEAD, EYES, EARS, NOSE AND THROAT: No change in vision. No ear pain or discharge. No sore throat. CARDIOVASCULAR: No chest pain. Positive shortness of breath, see HPI. RESPIRATORY: No cough. No sputum production. No hemoptysis. Positive intermittent wheezing, worse last night. See HPI. GASTROINTESTINAL: No nausea, vomiting, diarrhea or constipation. No rectal bleeding. GENITOURINARY: No dysuria, frequency, or change in urination. MUSCULOSKELETAL: No joint or muscle swelling or pain. No neck or back pain. No calf pain. No history of DVT. SKIN AND BREASTS: No rash or easy bruising. NEUROLOGIC: Positive headache. History of migraines chronically. Usually gets better with Excedrin Migraine. No vertigo. Positive lightheadedness when very short of breath at home. Now feeling better after receiving 1 albuterol treatment in the ED. PSYCHIATRIC: No depression or anxiety. ENDOCRINE: No increased thirst. No abnormal weight change. Positive history of hypothyroidism on Synthroid. HEMATOLOGIC/LYMPHATIC: No anemia, easy bleeding, or history of blood clots. ALLERGIC/IMMUNOLOGIC: No hives or skin allergy. No latex allergy. Past History - Past Medical History Allergies/Adverse Reactions: Allergies Allergy/AdvReac Type Severity Reaction Status Date / Time No Known Allergies Allergy Verified 05/16/19 09:21 Home Medications: Ambulatory Orders Levothyroxine [Synthroid -] 200 mcg PO DAILY 02/16/14 Alprazolam [Xanax Xr] 1 mg PO TID PRN 02/01/16 Oxycodone HCl 30 mg PO BID 02/01/16 Dextroamphetamine/Amphetamine [Adderall Xr 30 mg Capsule] 30 mg PO DAILY PRN 01/26/18 Albuterol 0.083% Nebulizer Neelam [Ventolin 0.083% Nebulizer Soln -] 1 neb NEB Q4H PRN #25 vial 05/16/19 Albuterol Sulfate [Albuterol Sulfate Hfa] 2 inh IH Q4H PRN #1 hfa.aer.ad 05/16/19 Tiotropium [place] [Spiriva Respimat] 2 inh IH DAILY #1 mist.inhal 05/16/19 predniSONE [Deltasone -] 40 mg PO DAILY 4 Days #8 tablet 05/16/19 Anemia: No Asthma: Yes (SEASONAL ASTHMA) Cancer: No Cardiac Disorders: No CVA: No COPD: No CHF: No Dementia: No Diabetes: No GI Disorders: No Disorders: No HTN: No Hypercholesterolemia: No Liver Disease: No Psychiatric Problems: Yes (ANXIETY) Seizures: No Thyroid Disease: Yes (HYPO) Other medical history: Chronic back and neck pain, takes oxycodone as needed - Surgical History Abdominal Surgery: Yes (CYST AND OVARY, ABLATION) Appendectomy: No Cardiac Surgery: No Lung Surgery: No Neurologic Surgery: No Orthopedic Surgery: Yes (MUSCLE, CARTLIDGE RIGHT RARM') - Psycho Social/Smoking Cessation Hx Smoking History: Current every day smoker Have you smoked in the past 12 months: Yes Number of Cigarettes Smoked Daily: 20 'Breaking Loose' booklet given: 09/16/17 Hx Alcohol Use: No Drug/Substance Use Hx: No Substance Use Type: None Hx Substance Use Treatment: No *Physical Exam - Physical Exam 05/16/19 08:28 GENERAL: The patient is awake, alert, and fully oriented, in no acute distress. On arrival, prior to receiving a DuoNeb, she was in some respiratory distress which rapidly resolved with initiation of the nebulizer. HEAD: Normal with no signs of trauma. EYES: Pupils equal, round and reactive to light, extraocular movements intact, sclera anicteric, conjunctiva clear. ENT: Ears normal, nares patent, oropharynx clear without exudates. Moist mucous membranes. NECK: Normal range of motion, supple without lymphadenopathy, JVD, or masses. LUNGS: Breath sounds are diffusely decreased. Initial exam had some scattered wheezes with poor air entry. Post 1 nebulizer treatment, the lungs are now clear with no wheezes. The initial shortness of breath rapidly resolved with institution of the nebulizer treatment. Patient is now speaking in full sentences. HEART: Regular rate and rhythm, normal S1 and S2 without murmur, rub or gallop. ABDOMEN: Soft, nontender, normoactive bowel sounds. No guarding, no rebound. No masses. EXTREMITIES: Normal range of motion, no edema. No clubbing or cyanosis. No cords, erythema, or tenderness. NEUROLOGICAL: Cranial nerves II through XII grossly intact. Normal speech, normal gait. PSYCH: Normal mood, normal affect. SKIN: Warm, Dry, normal turgor, no rashes or lesions noted. ED Treatment Course - LABORATORY CBC & Chemistry Diagram: 05/16/19 07:46 05/16/19 07:46 - RADIOLOGY Radiology Studies Ordered: Category Date Time Status CHEST PA & LAT [RAD] Stat Radiology 05/16/19 08:09 Ordered Medical Decision Making - Medical Decision Making 05/16/19 09:40 Patient is a 54-year-old female with a 40-year history of smoking 1 pack/day. She has intermittent symptoms in the past of shortness of breath with a have been responsive to albuterol. She comes in now with increased symptoms of nocturnal wheezing for the last couple of days, and the symptoms got worse last night when she ran out of her albuterol. She has no albuterol inhaler and no further albuterol nebulizer treatments. She has quit smoking in the past, but is continuously smoking currently. On initial examination she had wheezing and shortness of breath which rapidly resolved upon initiation of albuterol and ipratropium by nebulizer. Her shortness of breath has fully resolved. Her lungs are now clear throughout. Chest x-ray PA and lateral was reviewed by me. There is hyperinflation. There are no infiltrates. No masses. No pleural effusions. Radiology follow-up procedure activated prior to discharge. Laboratory studies reviewed. The white blood cell count is mildly elevated, with decreased neutrophils however. This is likely in the setting of stress with shortness of breath, as there are no other signs or symptoms of infection. The patient has no URI symptoms. The x-ray is totally clear without infiltrates. Impression: Smoker with reactive airways disease and likely COPD. Very mild COPD exacerbation in the setting of not having medication. Patient will be pres cribed Spiriva maintenance therapy, and albuterol rescue therapy. She will be given a 5-day course of prednisone 40 mg daily. There is no evidence for acute infection. Discharge - Discharge Information Problems reviewed: Yes Clinical Impression/Diagnosis: Acute bronchospasm Condition: Improved Disposition: HOME - Admission No - Additional Discharge Information Prescriptions: Albuterol Sulfate [Albuterol Sulfate Hfa] 2 inh IH Q4H PRN #1 hfa.aer.ad PRN Reason: Wheezing predniSONE [Deltasone -] 40 mg PO DAILY 4 Days #8 tablet Tiotropium [place] [Spiriva Respimat] 2 inh IH DAILY #1 mist.inhal Albuterol 0.083% Nebulizer Neelam [Ventolin 0.083% Nebulizer Soln -] 1 neb NEB Q4H PRN #25 vial PRN Reason: Wheezing - Follow up/Referral - Patient Discharge Instructions Patient Printed Discharge Instructions: DI for Chronic Obstructive Pulmonary Disease Additional Instructions: You were evaluated today for wheezing and shortness of breath. The diagnosis is asthma/COPD. You have been prescribed albuterol inhaler and albuterol nebulizer to be used as rescue medication for wheezing attacks. You have been prescribed prednisone 40 mg every morning for 4 more days starting tomorrow. You have also been prescribed a Spiriva inhaler 2 puffs once a day as a preventer for wheezing. Take this every day to prevent wheezing. Use nicotine gum to help you stop smoking. This can prevent further lung damage and can help prevent COPD. Discussed other smoking cessation techniques with your primary care physician. Follow-up with Dr. Pina. Return to the emergency department for any severe or progressive symptoms. - Post Discharge Activity
[2019-05-16] MEDS ORDERED: methylPREDNISolone NA SUCC 40 MG/1 ML VIAL ONE (08:28)
[2019-05-16 08:33] VITALS: BP 111/77; PULSE 87; TEMP 98.2; BMI 21.6
[2019-05-16 09:05] LABS: BASO % 0.6 % (0-2.0); EOS % 6.2 % (0-4.5); HEMATOCRIT 36.6 % (32.4-45.2); HEMOGLOBIN 12.3 GM/dl (10.7-15.3); LYMPH % 56.2 % (8-40); MCH 31.2 pg (25.7-33.7); MCHC 33.7 g/dl (32.0-36.0); MEAN CELL VOLUME 92.7 fl (80-96); MEAN PLT VOLUME 7.7 fl (7.5-11.1); MONO % 5.9 % (3.8-10.2); NEUT % 31.1 % (42.8-82.8); PLATELET COUNT 293 K/MM3 (134-434); RBC 3.95 M/mm3 (3.60-5.2); RDW 12.9 % (11.6-15.6); WHITE BLOOD COUNT 11.8 K/mm3 (4.0-10.8)
[2019-05-16] MEDS ORDERED: ACETAMINOPHEN/CAFFEINE/BUTALBITAL 1 TAB PO ONE (09:06)
[2019-05-16] MEDS ORDERED: ACETAMINOPHEN/CAFFEINE/BUTALBITAL 1 TAB ONE (09:08)
[2019-05-16 09:16] LABS: ALBUMIN 3.8 g/dl (3.4-5.0); CALCIUM 8.4 mg/dl (8.5-10); CREATININE 0.6 mg/dl (0.55-1.3); POTASSIUM 3.6 mmol/L (3.5-5.1); TOT PROT 6.9 g/dl (6.4-8.2)
[2019-05-16 09:30] LABS: BILIRUBIN,TOTAL 0.3 mg/dl (0.2-1)
== END 2019-05-16 10:00 | disposition home or self-care (01) ==
LOC: FER 08:02
PROC: 3E0F7GC Introduction of Other Therapeutic Substance into Respiratory Tract, Via Natural or Artificial Opening (ICD-10-PCS; principal; 2019-05-16)
PROC: 3E033GC Introduction of Other Therapeutic Substance into Peripheral Vein, Percutaneous Approach (ICD-10-PCS; 2019-05-16)
DX: J98.01 Acute bronchospasm (principal); F17.210 Nicotine dependence, cigarettes, uncomplicated; E03.9 Hypothyroidism, unspecified
CPT/HCPCS: 36415; 71046-TC-FY; 80053; 85025; 99284-25

== ENCOUNTER 2021-07-21 13:30 | Emergency (ER) | payer OTHER ==
[2021-07-21 13:44] VITALS: TEMP 98.6; BMI 20.5
[2021-07-21] MEDS ORDERED: METOCLOPRAMIDE HCL INJECTION 10 MG/2 ML VIAL IVPUSH ONE (14:02)
[2021-07-21] MEDS ORDERED: SODIUM CHLORIDE 0.9% 500 ML INFUS.BAG IV ONE (14:02)
[2021-07-21] MEDS ORDERED: KETOROLAC TROMETHAMINE 15 MG/ML VIAL IVPUSH ONE (14:02)
[2021-07-21] MEDS ORDERED: METOCLOPRAMIDE HCL INJECTION 10 MG/2 ML VIAL ONE (14:08)
[2021-07-21] MEDS ORDERED: KETOROLAC TROMETHAMINE 15 MG/ML VIAL ONE (14:08)
[2021-07-21 15:28] VITALS: BP 122/78; PULSE 86
== END 2021-07-21 15:28 | disposition home or self-care (01) ==
LOC: JER 13:30
PROC: 3E0333Z Introduction of Anti-inflammatory into Peripheral Vein, Percutaneous Approach (ICD-10-PCS; principal; 2021-07-21)
PROC: 3E033GC Introduction of Other Therapeutic Substance into Peripheral Vein, Percutaneous Approach (ICD-10-PCS; 2021-07-21)
DX: G43.009 Migraine without aura, not intractable, without status migrainosus (principal)
CPT/HCPCS: 99284-25